=== PATIENT | male | born 1970 | race Native Hawaiian/Other Pacific Islander ===

== ENCOUNTER 2016-09-15 04:33 | Observation (INO) | payer OTHER ==
[~2016-09-15] VITALS: Ht 177.8 cm; Wt 125.7 kg
[2016-09-15] VITALS (7 sets, daily range): BP systolic 122–165; BP diastolic 68–99; TEMP 97.4–97.8; Ht 177.8 cm; Wt 125.7 kg
[2016-09-15 05:11] LABS: PLATELET COUNT 166 K/uL (142-355)
[2016-09-15 05:19] LABS: POTASSIUM 4.2 mmol/L (3.6-5.2); SODIUM 130 mmol/L (136-145)
[2016-09-16] VITALS: BP 127/76; TEMP 98.3
[2016-09-16 04:00] VITALS: BP 107/71; TEMP 98
[2016-09-16 08:00] VITALS: BP 109/69; TEMP 97.5
[2016-09-16 09:39] LABS: PLATELET COUNT 135 K/uL (142-355)
[2016-09-16 09:45] LABS: POTASSIUM 3.5 mmol/L (3.6-5.2); SODIUM 133 mmol/L (136-145)
[2016-09-16 12:00] VITALS: BP 102/64; TEMP 98
--- NOTE | 2016-09-16 15:15 | NUR ---
IV D/C'D. D/C INSTURCTIONS GIVEN. F/U WITH TESSIE MARTÍNEZ. PT HAS NO QUESTIONS. PT WHEELED OUT TO CAR, NAD NOTED.
== END 2016-09-16 15:15 | disposition home or self-care (01) ==
LOC: ED 04:33 → MED/SURG 07:45
PROVIDERS: Emergency Medicine
DX: K52.89 Other specified noninfective gastroenteritis and colitis (principal); R94.5 Abnormal results of liver function studies; K80.50 Calculus of bile duct without cholangitis or cholecystitis without obstruction
CPT/HCPCS: 80053; 82150; 83690; 83735; 85027; 96366; 96372; 96374; 99220; G0378; J1650; J2405; J3490; Q9963